=== PATIENT | female | born 1950 ===

== ENCOUNTER 2023-05-12 14:30 | Outpatient (AMB) | payer MEDICAID, SELFPAY ==
--- NOTE | 2023-05-12 14:38 | MHC.OFFWIV ---
Intake Vital Signs 05/12/23 14:45 Height 4 ft 11 in BP 132/62 Blood Pressure Location Lt brachial Position Sitting Pulse 61 Pulse Source Pulse Oximeter Temp 96.9 F Temp Source Temporal Artery Scan Pulse Oximetry (%) 99 Oxygen Delivery Method Room Air Intake Visit Reasons: LINOLEUM LAYER BP meds/Blood sugar meds Intake Note: Pt is here for a medication refill. Pt came from [facility] in January and is out of all her medications. Pt's daughter has a picture of medications she needs. Allergies No Known Allergies Allergy (Verified 05/12/23 15:26) Medication List - Last Reconciled 05/12/23 by Candido Royal MD amlodipine 5 mg PO DAILY bisoprolol fumarate 2.5 mg (1/2 x 5 mg) PO DAILY valsartan 80 mg PO DAILY Do you need a note to return to daycare/school/sports/work: No HPI LINOLEUM LAYER BP meds/Blood sugar meds HPI Details 73-year-old female presents to the office for a sick visit. The daughter is translating. Patient has relocated from [facility] 4 months ago. She has run out of her blood pressure medications and requests a refill. Patient takes amlodipine, bisoprolol and irbesartan 150 mg. Physical Exam Vital Signs: Last Vital Signs Temp 96.9 F 05/12/23 14:45 Pulse 61 05/12/23 14:45 BP 132/62 05/12/23 14:45 Pulse Ox 99 05/12/23 14:45 Oxygen Delivery Method Room Air 05/12/23 14:45 Const General: cooperative and healthy appearing Nutritional Appearance: well nourished Orientation/consciousness: patient oriented x3 Limitations: no limitations HEENT Head: Yes normal to inspection Eyes General: appearance normal, both eyes and all related structures Neck Neck: Yes normal visual inspection Chest Chest palpation & inspection: normal palpation of entire chest wall Resp Effort & Inspection: normal respiratory effort Neuro General: patient oriented x3 Assessment & Plan Assessment & Plan (1) Essential hypertension: Code(s): I10 - Essential (primary) hypertension Plan: Prescription was called in.irbesartan was replaced by valsartan due to non availability. Medications: New amlodipine 5 mg PO DAILY 30 tabs 0RF bisoprolol fumarate 2.5 mg (1/2 x 5 mg) PO DAILY 30 tabs 0RF valsartan 80 mg PO DAILY 30 tabs 0RF Coding Level of Care Code New Pt Level 3 (34231) Diagnoses Essential hypertension I10
[2023-05-12 14:45] VITALS: BP 132/62; PULSE 61; TEMP 36.1; O2SAT 99
== END 2023-05-12 15:54 | disposition home or self-care (01) ==
PROVIDERS: PCP Internal Medicine; Visit Provider Internal Medicine
DX: I10 Essential (primary) hypertension (principal)
CPT/HCPCS: 99203